=== PATIENT | female | born 1955 | race Caucasian/White ===

== ENCOUNTER → 2019-10-24 | Outpatient (CLI) | payer BC ==
[2019-10-24 12:06] LABS: HEMOGLOBIN 12.5 g/dL (12.0-16.0)
[2019-10-24 12:21] LABS: INR 1.07; PROTHROMBIN TIME 14.4 seconds (11.9-14.5)
[2019-10-24 12:22] LABS: PARTIAL THROMBOPLASTIN TIME 37.3 seconds (23.8-35.5)
[2019-10-24 12:26] LABS: BLOOD UREA NITROGEN 10 mg/dL (7-26); BUN/CREATININE RATIO 16 (6-25); CREATININE, SERUM 0.63 mg/dL (0.57-1.11); EST GLOMERULAR FILTRATION RATE > 60 ML/MIN (60-)
--- NOTE | 2019-10-24 13:00 | Diagnostic Imaging Report ---
EXAMINATION: CHEST XRAY LINE PLACEMENT INDICATION: Line placement COMPARISON: None FINDINGS: LINES/TUBES:PICC line terminates in the SVC. LUNGS:The lungs are well-inflated. No focal consolidation or pulmonary edema. PLEURA:No pleural effusion or pneumothorax. MEDIASTINUM:The cardiomediastinal silhouette appears normal in size and shape. BONES/SOFT TISSUES:No acute osseous injury. ABDOMEN:No free air under the diaphragm. IMPRESSION: PICC line terminates in the SVC. No focal pneumonia or pulmonary edema. Signed by: Marilou Fall MD on 10/24/2019 12:56 PM
== END ==
LOC: DX 11:27
PROVIDERS: ATTEND Internal Medicine Infectious Disease
DX: L03.116 Cellulitis of left lower limb (principal)
CPT/HCPCS: 36415; 36569; 71045; 82565; 84520; 85014; 85049; 85610; 85730